=== PATIENT | male | born 1985 | race African-American/Black ===

== ENCOUNTER 2018-02-15 07:59 | Observation (INO) ==
[2018-02-15] MEDS ORDERED: Aspirin 81 MG TAB.CHEW PO ONE (08:04)
[2018-02-15] MEDS ORDERED: Nitroglycerin 0.4 MG TAB.SUBL SL PRN ×2 (08:11→14:54)
[2018-02-15 08:36] LABS: Basophils % 0.4 %; Eosinophils # 0.1 K/mcL (0.0-0.6); Eosinophils % 1.2 %; Hematocrit 42.6 % (37.5-50.1); Hemoglobin 14.3 g/dL (12.9-16.9); Immature Granulocytes % 0.6 % (0-4); Lymphocytes # 1.4 K/mcL (0.6-4.6); Lymphocytes % 17.4 %; Mean Corpuscular HGB Conc 33.6 g/dL (31.6-35.5); Mean Corpuscular Hemoglobin 29.8 pg (28.0-33.3); Mean Corpuscular Volume 88.8 fL (83.0-100.0); Mean Platelet Volume 11.8 fL (9.4-12.4); Monocytes # 0.8 K/mcL (0.0-1.3); Monocytes % 9.2 %; Neutrophils # 5.8 K/mcL (1.6-8.9); Platelet Count 265 K/mcL (140-400); Red Cell Distribution Width 12.8 % (11.5-14.5); Segmented Neutrophils % 71.2 %
[2018-02-15 08:41] LABS: INR 1.2; Prothrombin Time 12.6 Seconds (9.4-12.1)
[2018-02-15 08:44] LABS: Activated Partial Thrombo Time 30.5 Seconds (26.0-36.0)
[2018-02-15 08:51] LABS: Troponin I < 0.03 ng/mL (< 0.04)
[2018-02-15 08:53] LABS: BUN/Creatinine Ratio 8 (6-26); Blood Urea Nitrogen 9 mg/dL (6-20); Calcium 9.3 mg/dL (8.6-10.3); Carbon Dioxide 26 mEq/L (23-29); Chloride 102 mEq/L (98-107); Glucose 110 mg/dL (70-105); Osmolality,Calculated 279 (280-300); Potassium 3.6 mEq/L (3.5-5.1); Sodium 135 mEq/L (136-145); eGFR For African Americans > 60 (> 60); eGFR For Non-African Americans > 60 (> 60)
--- NOTE | 2018-02-15 09:29 | Emergency Department Note ---
Disposition Clinical Impression: Atypical chest pain Chest pain Qualifiers: Chest pain type: unspecified Qualified Code(s): R07.9 - Chest pain, unspecified Disposition: Admitted As Inpatient Condition: Good Referrals: NONE,PCP [Primary Care Provider] - Time of Disposition: 09:48 Chest Pain HPI - General Chief Complaint: ED Chest Pain Stated Complaint: Chest Pain Time Seen by Provider: 02/15/18 08:03 Source: EMS Mode of arrival: EMS Limitations: no limitations Vital Signs Reviewed: Yes Nursing Notes Reviewed: Yes - History of Present Illness HPI Narrative: Patient presents to the emergency room for evaluation of chest pain. 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 He has had some left arm discomfort over the last several months but this was completely different. He attributed the previous pain to a shot Onset (ago): Just COTTON TIER Duration: intermittent, now resolved Onset: during rest Pain Location: substernal, left chest Severity: mild Severity scale (1-10): 2 Quality: tightness, heaviness Pain Radiation: LUE Improves with: nothing Worsens with: nothing Associated symptoms: Denies: nausea, vomiting, diaphoresis Treatments prior to arrival chest pain: aspirin All systems ED: reviewed and negative except as stated. Review of Systems: As Per HPI Constitutional: Denies: fever, chills Cardiovascular: Reports: chest pain. Denies: palpitations, dyspnea on exertion , orthopnea Respiratory: Denies: cough, dyspnea, wheezes Gastrointestinal: Denies: abdominal pain, nausea, vomiting, diarrhea, constipation Genitourinary: Denies: dysuria, frequency Musculoskeletal: Denies: back pain, neck pain Neurological: Denies: headache Endocrine: Denies: fatigue Chest Pain PMH - Past Medical History Medical history: Reports: GERD Psychiatric history: Reports: no psych history - Social History Smoking Status: Never smoker Alcohol use: Reports: none Drug use: Reports: none Physical Exam - General Limitations: no limitations General appearance: alert, in no apparent distress - Head Head exam: atraumatic, normocephalic, normal inspection - ENT ENT exam: normal exam, normal oropharynx, mucous membranes moist - Neck Neck exam: Present: normal inspection, full ROM, trachea midline. Absent: tenderness, meningismus, lymphadenopathy - Chest Chest inspection: Present: normal inspection, symmetric chest wall rise. Absent : tenderness - Respiratory Respiratory exam: Present: normal lung sounds bilaterally. Absent: respiratory distress, wheezes, accessory muscle use - Cardiovascular Cardiovascular exam: Present: regular rate, normal rhythm, normal heart sounds - Abdominal Exam Abdominal exam: Present: soft, Non-Tender. Absent: tenderness, distention, guarding, rebound, rigidity, Corea's sign, Rovsing's sign, tenderness at McBurney's Point - Extremities Exam Extremities exam: Present: normal inspection, full ROM, normal capillary refill. Absent: tenderness, pedal edema - Back Exam Back exam: Present: normal inspection, full ROM. Absent: tenderness - Neurological Exam Neurological exam: Present: alert, oriented X3, CN II-XII intact, normal gait - Skin Skin exam: Present: warm, dry, intact, normal color Course Course Narrative: Patient seen and examined the time of arrival. See history of present illness. 32-year-old male presents to the emergency room with complaint of chest pressure and pain that radiated down his left arm. Patient never had any like this before. Over the last several months he has had some pain in his left shoulder that he attributed to a intramuscular shot for the flu vaccination. He is describing the symptoms here today as different. Patient had the onset of the symptoms within the last several hours just prior to coming in. EMS transported and EKG to the emergency room that did not show any acute signs of ST segment elevation mother were T-wave inversions noted in lead 3 and aVF. Repeat EKG was collected immediately on presentation shows similar morphology. There is no visible signs of ST segment elevation or abnormality at this point. Patient is denying chest pain on arrival here in the care of the emergency medical providers. Currently, patient is denying chest pain shortness of breath headache vision changes nausea vomiting or diarrhea. His only medical issue is acid reflux. He denies any recent trauma injury or fevers. Patient has an over the road dump truck driver. Because of this presentation patient with chest x-ray EKG labs including CBC chemistry troponin and d-dimer. Patient otherwise denies any family history of early cardiac disease or myocardial infarction. Clinical suspicion is concerning for possible acute coronary syndrome based on the presentation symptoms and the pressure. Full workup will be completed and patient will most likely be admitted. Nitroglycerin child is ordered but only will be started at the patient has reemergence of the chest pressure and pain. Patient is otherwise clinically stable. Aspirin and started been given. Patient lungs are clear heart is regular abdomen is soft. Patient has no signs of pitting edema. Pulses are intact and symmetrical bilaterally. Patient is otherwise in no specific distress on arrival and her first initial evaluation. - Reevaluation(s) Reevaluation #1: Patient did disclose that he is currently being treated for bronchitis. His EKG does not show any acute signs of pericarditis or myocarditis. Troponin is negative. Patient is clinically stable. Discussed at length the concern secondary to the chest pressure and pain along with his lack of medical history. Patient understands this and appreciates our concern. EKG abnormality including the Q waves in the inverted T waves are also concerning for recent myocardial ischemia with no comparable EKG for our review. The repeat EKG approximately 30 minutes after the initial does not show any acute changes. Patient at this time will be admitted to the hospital for definitive management. No acute intervention or medical necessity has been needed here in the emergency room. Labs and imaging are unremarkable repeat EKGs are stable. D-dimer is normal at this time a low clinical suspicion for pulmonary emboli. The hospitalist Dr. Jorge and I reviewed the patient's presentation symptoms medical history medical intervention and he had no other recommendations at this time. Patient will be admitted for further evaluation and definitive management. Time: 09:44 Vital Signs Temperature 98.0 F 02/15/18 08:02 Pulse Rate 96 02/15/18 08:02 Respiratory Rate 20 02/15/18 08:02 Blood Pressure 150/112 02/15/18 08:02 O2 Sat by Pulse Oximetry 92 02/15/18 08:02 Temperature 98.0 F 02/15/18 08:02 Pulse Rate 96 02/15/18 08:02 Respiratory Rate 20 02/15/18 08:02 Blood Pressure 150/112 02/15/18 08:02 O2 Sat by Pulse Oximetry 92 02/15/18 08:02 Oxygen Delivery Oxygen Delivery Room Air Chest Pain - MDM Narrative Medical decision making narrative: Chest pain, ACS rule out - Medical Records Medical records reviewed: Yes I reviewed the patient's medical records. - Lab Data Lab results reviewed: Yes I reviewed the patient's lab results. Result diagrams: 02/15/18 08:16 02/15/18 08:16 Lab Results 02/15/18 02/15/18 02/15/18 Range/Units 08:16 08:16 08:16 WBC 8.1 (4.3-11.1) K/mcL RBC 4.80 (4.19-5.50) M/mcL Hgb 14.3 (12.9-16.9) g/dL Hct 42.6 (37.5-50.1) % MCV 88.8 (83.0-100.0) fL MCH 29.8 (28.0-33.3) pg MCHC 33.6 (31.6-35.5) g/dL RDW 12.8 (11.5-14.5) % Plt Count 265 (140-400) K/mcL MPV 11.8 (9.4-12.4) fL Immature Gran % 0.6 (0-4) % Seg Neutrophils % 71.2 % Lymphocytes % 17.4 % Monocytes % 9.2 % Eosinophils % 1.2 % Basophils % 0.4 % Neutrophils # 5.8 (1.6-8.9) K/mcL Lymphocytes # 1.4 (0.6-4.6) K/mcL Monocytes # 0.8 (0.0-1.3) K/mcL Eosinophils # 0.1 (0.0-0.6) K/mcL Basophils # 0.0 (0.0-0.2) K/mcL PT 12.6 H (9.4-12.1) Seconds INR 1.2 APTT 30.5 (26.0-36.0) Seconds D-Dimer (0-500) ng/mLFEU Sodium (136-145) mEq/L Potassium (3.5-5.1) mEq/L Chloride (98-107) mEq/L Carbon Dioxide (23-29) mEq/L BUN (6-20) mg/dL Creatinine (0.70-1.30) mg/dL Est GFR ( Amer) (> 60) Est GFR (Non-Af Amer) (> 60) BUN/Creatinine Ratio (6-26) Glucose (70-105) mg/dL Calculated Osmolality (280-300) Calcium (8.6-10.3) mg/dL Troponin I (< 0.04) ng/mL B-Natriuretic Peptide 13 (Less than 100) pg/mL 02/15/18 02/15/18 Range/Units 08:16 08:16 WBC (4.3-11.1) K/mcL RBC (4.19-5.50) M/mcL Hgb (12.9-16.9) g/dL Hct (37.5-50.1) % MCV (83.0-100.0) fL MCH (28.0-33.3) pg MCHC (31.6-35.5) g/dL RDW (11.5-14.5) % Plt Count (140-400) K/mcL MPV (9.4-12.4) fL Immature Gran % (0-4) % Seg Neutrophils % % Lymphocytes % % Monocytes % % Eosinophils % % Basophils % % Neutrophils # (1.6-8.9) K/mcL Lymphocytes # (0.6-4.6) K/mcL Monocytes # (0.0-1.3) K/mcL Eosinophils # (0.0-0.6) K/mcL Basophils # (0.0-0.2) K/mcL PT (9.4-12.1) Seconds INR APTT (26.0-36.0) Seconds D-Dimer 261 (0-500) ng/mLFEU Sodium 135 L (136-145) mEq/L Potassium 3.6 (3.5-5.1) mEq/L Chloride 102 (98-107) mEq/L Carbon Dioxide 26 (23-29) mEq/L BUN 9 (6-20) mg/dL Creatinine 1.07 (0.70-1.30) mg/dL Est GFR ( Amer) > 60 (> 60) Est GFR (Non-Af Amer) > 60 (> 60) BUN/Creatinine Ratio 8 (6-26) Glucose 110 H (70-105) mg/dL Calculated Osmolality 279 L (280-300) Calcium 9.3 (8.6-10.3) mg/dL Troponin I < 0.03 (< 0.04) ng/mL B-Natriuretic Peptide (Less than 100) pg/mL - Radiology Data Radiology results reviewed: Yes I reviewed the patient's radiology results. Chest x-ray is unremarkable for acute intrathoracic pathology at this time. - EKG Data EKG attestation: Yes I reviewed and interpreted this EKG. EKG results narrative: Initial EKG at 802 hours shows sinus rhythm with T-wave inversions in lead 3 and aVF. No acute reciprocal changes noted. Patient has sinus rhythm. Ventricular rate of 93. MN interval 176. QRS duration 112. QTC of 413. Patient does not have any other acute abnormalities noted this time. No acute signs of WPW or Brugada syndrome. No comparable EKG. Repeat EKG at 0832 hours. Identical morphology with no acute changes. Intervals appear to be symmetrical periventricular 100. No axis deviation. No acute signs of ST segment elevation or abnormality. Heart Score - Score History: Moderately Suspicious EKG: Non Specific repolarisation Disturbance Age: Less than 45 Risk Factors: No risk factors known Troponin: Less than normal limit HEART Score Total: 2
--- NOTE | 2018-02-15 10:12 | Internal Med History&Physical ---
Date of Encounter: 02/15/18 Time of Encounter: 09:50 Internal Medicine - H&P: HPI Admitted From: Emergency Dept Plans for Post Hospital Care: Home History of present illness: Mr. Leung is a 32 year old man who presneted in the ER c/o left-sided chest pain with radiation to his right shoulder and proximal right arm. There are no associated symptoms including sob, diaphoresis, dizziness, etc. These symptoms have been occurring for several days and he thinks they may have begun with a pulled muscle in his left chest wall possibly associated with a chronic cough he 's had for several months. The symptoms are somewhat reproducible with palpation of his anterior chest wall but not entirely the same. The symptoms are worse this morning prompting him to come to the ER. He has no personal history of CAD, but his father at age 74 from a first AL. His ECG showed TWI in II and aVF and his initioal troponin was <0.03. His D-dimer is wnl at 261 and he has no other symptoms to be concerned for a PE. 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 He was hypertensive with a BP of 150/113 in the ER, but denies a history of HTN. He c/o several months of a non-productive cough but his CXR failed to show any significant acute pathology. He was given aspirin but did not require NG to cause improvement of his symptoms. He has never had a stress test but will undergo a nuclear stress test and have an Echo today. Past Med Surg Social Fam HX - Past Medical History Medical history: GERD, hypertension Psychiatric history: no psych history - Social History Smoking Status: Never smoker Smokeless Tobacco Status: No Alcohol use: none Drug use: none Internal Medicine - H&P: Meds Doxycycline Hyclate [Morgidox] 100 mg PO BID 02/15/18 [History] Omeprazole [PriLOSEC] 40 mg PO DAILY 02/15/18 [History] All Systems PM: A 10-system review of systems was performed and is negative for pertinent findings except as documented above in the HPI. - Constitutional Constitutional: no chills, no fever(s), no night sweats - EENT Eyes: no blurry vision, no change in vision, no discharge, no irritation, no pain, no photophobia Ears: no ear discharge, no ear pain, no tinnitus Nose, mouth and throat: no dry mouth, no dysphagia, no nasal discharge, no neck pain, no sinus pain, no sinus pressure, no sore throat - Cardiovascular Cardiovascular ROS IM: chest pain, no diaphoresis, no dyspnea, no irregular heart rhythm, no lightheadedness, no palpitations, no syncope - Respiratory Respiratory: cough, no dyspnea, no hemoptysis, no wheezing, no stridor, no excessive phlegm production - Gastrointestinal Gastrointestinal: no abdominal pain, no diarrhea, no hematemesis, no hematochezia, no melena, no nausea, no vomiting - Musculoskeletal Musculoskeletal ROS IM: no muscle weakness, no numbness, no tingling - Integumentary Integumentary IM: no rash, no unusual bruising - Neurological Neurological ROS: no confusion, no convulsions, no focal weakness, no numbness, no tingling, no tremor(s) - Hematologic/Lymphatic Hematologic/Lymphatic: no easy bruising - Constitutional Vitals: Temp Pulse Resp BP Pulse Ox 98.0 F 96 20 150/112 92 02/15/18 08:02 02/15/18 08:02 02/15/18 08:02 02/15/18 08:02 02/15/18 08:02 General appearance: Present: A&O X 3, pleasant, no acute distress, obese - Head Head exam: Present: atraumatic, normocephalic - Eye Eye exam: Present: EOMI, PERRL, conjuntiva pink, sclera anicteric. Absent: conjunctival injection Pupils: Present: PERRL - Neck Neck exam general surgery: Present: supple, trachea midline. Absent: lymphadenopathy - Respiratory Respiratory exam: Present: CTAB. Absent: accessory muscle use, rales, rhonchi, wheezes - Cardiovascular Cardiovascular exam: Present: RRR, +S1, +S2. Absent: diastolic murmur, gallop, rubs, systolic murmur - GI/Abdominal GI/Abdominal exam: Present: normal bowel sounds, soft, no peritoneal signs. Absent: distended, tenderness - Extremities Exam Extremities exam: Present: full ROM, warm. Absent: calf tenderness, cyanotic, pedal edema - Neurological Exam Neurological exam: Present: CN II-XII intact, oriented X3, no focal deficits. Absent: pronater drift, facial droop, speech deficit - Skin Skin exam: Present: dry, intact, normal color. Absent: diaphoretic, rash Internal Med - H&P Results - Labs CBC & Chem 7: 02/15/18 08:16 02/15/18 08:16 Labs: Short CBC 02/15/18 Range/Units 08:16 WBC 8.1 (4.3-11.1) K/mcL Hgb 14.3 (12.9-16.9) g/dL Hct 42.6 (37.5-50.1) % Plt Count 265 (140-400) K/mcL Neutrophils # 5.8 (1.6-8.9) K/mcL BMP 02/15/18 08:16 Sodium 135 L Potassium 3.6 Chloride 102 Carbon Dioxide 26 BUN 9 Creatinine 1.07 Glucose 110 H Calcium 9.3 Cardiac Enzymes 02/15/18 Range/Units 08:16 Troponin I < 0.03 (< 0.04) ng/mL - Impressions ITS Impressions Chest X-Ray 02/15/18 08:04 IMPRESSION: No acute process. D/ / Emilie Encinas MD / Emilie Encinsa MD Interpreting Provider: Emilie Encinas MD - Assessment and plan (1) Chest pain Current Visit: Yes Status: Acute Assessment and plan: Adm for obs. Trend troponins (initial <0.03) ECG showed TWI in ing leads No personal history, but family history of CAD and risk factors (HTN, obesity) Exercise nuclear stress test ordered CXR neg Telemetry Lipid panel and A1c ordered Aspirin given Qualifiers: Chest pain type: precordial pain Qualified Code(s): R07.2 - Precordial pain (2) Hypertensive urgency Current Visit: Yes Status: Acute Assessment and plan: Start lisinopril and add PRN Hydralazine (3) Obesity Current Visit: Yes Status: Acute Assessment and plan: Risk reduction strategy explained to pt including weight loss Qualifiers: Obesity type: due to excess calories Body mass index: BMI 40.0-44.9 Qualified Code(s): E66.01 - Morbid (severe) obesity due to excess calories; Z68.41 - Body mass index (BMI) 40.0-44.9, adult; Z68.41 - Body mass index (BMI) 40.0-44.9, adult; Z68.41 - Body mass index (BMI) 40.0-44.9, adult; Z68.41 - Body mass index (BMI) 40.0-44.9, adult (4) Cough Current Visit: No Status: Chronic Assessment and plan: Chronic cough No fever with normal WBC Denies tob use Not currently coughing - Time Spent With Patient Total time spent is greater than 50% in coordination of care (as documented) at patient's floor/unit and/or counseling patient: 25 - 35 minutes
[2018-02-15 10:21] LABS: Chol/HDL Ratio 4.1 (0-4.9); Cholesterol 171 mg/dL (< 200); HDL Cholesterol 42 mg/dL (40-59); LDL Cholesterol,Calculated 110 mg/dL (0-99); Triglycerides 95 mg/dL (< 150)
[2018-02-15 10:30] LABS: Estimated Average Glucose 117 mg/dl; Hemoglobin A1C 5.7 %
[2018-02-15] MEDS ORDERED: Benzonatate 100 MG CAPSULE PO PRN (10:56)
[2018-02-15] MEDS: *HR* HYDROcodone/Acet 5/325 mg TABLET PO PRN (17:30)
[2018-02-15] MEDS: Doxycycline 100 MG CAPSULE PO SCH (22:45)
[2018-02-16 04:52] LABS: Basophils % 0.1 %; Eosinophils # 0.2 K/mcL (0.0-0.6); Eosinophils % 2.4 %; Hematocrit 42.8 % (37.5-50.1); Hemoglobin 14.1 g/dL (12.9-16.9); Immature Granulocytes % 0.5 % (0-4); Lymphocytes # 1.9 K/mcL (0.6-4.6); Lymphocytes % 24.9 %; Mean Corpuscular HGB Conc 32.9 g/dL (31.6-35.5); Mean Corpuscular Hemoglobin 29.4 pg (28.0-33.3); Mean Corpuscular Volume 89.4 fL (83.0-100.0); Mean Platelet Volume 11.5 fL (9.4-12.4); Monocytes # 0.9 K/mcL (0.0-1.3); Monocytes % 11.4 %; Neutrophils # 4.5 K/mcL (1.6-8.9); Platelet Count 246 K/mcL (140-400); Red Blood Count 4.79 M/mcL (4.19-5.50); Segmented Neutrophils % 60.7 %
[2018-02-16 04:57] LABS: INR 1.1; Prothrombin Time 12.3 Seconds (9.4-12.1)
[2018-02-16 05:19] LABS: Alanine Aminotransferase 15 Units/L (7-52); Albumin 3.7 g/dL (3.5-5.7); Albumin/Globulin Ratio 1.1 (1.1-2.2); Alkaline Phosphatase 50 Units/L (34-104); Aspartate Amino Transferase 16 Units/L (13-39); BUN/Creatinine Ratio 10 (6-26); Bilirubin,Total 0.4 mg/dL (0.3-1.0); Blood Urea Nitrogen 12 mg/dL (6-20); Calcium 9.4 mg/dL (8.6-10.3); Carbon Dioxide 28 mEq/L (23-29); Chloride 103 mEq/L (98-107); Globulin 3.4 g/dL (2.4-3.5); Glucose 93 mg/dL (70-105); Magnesium 2.4 mg/dL (1.6-2.6); Osmolality,Calculated 283 (280-300); Potassium 3.9 mEq/L (3.5-5.1); Sodium 137 mEq/L (136-145); Total Protein 7.1 g/dL (6.4-8.9); eGFR For African Americans > 60 (> 60); eGFR For Non-African Americans > 60 (> 60)
--- NOTE | 2018-02-16 05:55 | Electrocardiograph Report ---
[facility] Test Date: 2018-02-15 Pat Name: Malcom Leung Department: 103 Room: 3B65 Gender: M Rehabilitation Specialist: MSC : 1985 Requested By: Jose Rafael Garibay Order Number: [id number] Reading MD: Allen Nelson Measurements Intervals [place] Rate: 93 P: 23 AK: 176 QRS: 47 QRSD: 112 T: 2 QT: 362 QTc: 413 Interpretive Statements SINUS RHYTHM POSSIBLE LEFT ATRIAL ENLARGEMENT [-0.1mV P WAVE IN V1/V2] POSSIBLE INFERIOR MYOCARDIAL INFARCTION [30 ms Q WAVE IN II/aVF], PROBABLY OLD Electronically Signed On 02-16-2018 5:54:11 EDT by Allen Nelson
--- NOTE | 2018-02-16 05:55 | Electrocardiograph Report ---
[facility] Test Date: 2018-02-15 Pat Name: Malcom Leung Department: 103 Room: 3B65 Gender: M Patient Services Rep: MSC : 1985 Requested By: Jose Rafael Garibay Order Number: [id number] Reading MD: Allen Nelson Measurements Intervals [place] Rate: 100 P: 12 MS: 168 QRS: 56 QRSD: 106 T: -1 QT: 357 QTc: 414 Interpretive Statements SINUS TACHYCARDIA POSSIBLE LEFT ATRIAL ENLARGEMENT [-0.1mV P WAVE IN V1/V2] POSSIBLE INFERIOR MYOCARDIAL INFARCTION [30 ms Q WAVE IN II/aVF], PROBABLY OLD ABNORMAL RHYTHM ECG Electronically Signed On 02-16-2018 5:54:17 EDT by Allen Nelson
[2018-02-16] MEDS ORDERED: Aspirin 81 MG TAB.CHEW PO SCH (09:00)
[2018-02-16] MEDS: Doxycycline 100 MG CAPSULE PO SCH (09:57)
[2018-02-16 10:36] VITALS: BP 129/86
[2018-02-16] MEDS: *HR* HYDROcodone/Acet 5/325 mg TABLET PO PRN (10:50)
--- NOTE | 2018-02-16 11:48 | Discharge Summary ---
- NOTES TO OUTPATIENT PROVIDER Notes to Outpatient Provider: f/u PCP if musculoskeletal pain continues may take Motrin as needed. f/u with dentist for dental pain Date of Encounter: 02/16/18 Time of Encounter: 11:46 - Discharge Diagnosis (1) Chest pain Priority: Primary Status: Acute Qualifiers: Chest pain type: precordial pain Qualified Code(s): R07.2 - Precordial pain (2) Hypertensive urgency Priority: Primary Status: Chronic (3) Obesity Priority: Primary Status: Chronic Qualifiers: Obesity type: due to excess calories Body mass index: BMI 40.0-44.9 Qualified Code(s): E66.01 - Morbid (severe) obesity due to excess calories; Z68.41 - Body mass index (BMI) 40.0-44.9, adult; Z68.41 - Body mass index (BMI) 40.0-44.9, adult; Z68.41 - Body mass index (BMI) 40.0-44.9, adult; Z68.41 - Body mass index (BMI) 40.0-44.9, adult (4) Cough Priority: Primary Status: Chronic (5) Tooth pain Priority: Primary Status: Acute (6) Atypical chest pain Priority: Primary Status: Acute Hospital course: Mr. Leung is a 32 year old male who presented to the ER with left-sided chest pain that radiated to his left shoulder and proximal left arm. He thanked thinks it began with a pulled muscle in his chest. He also has a cough that he has had for several months. Cough did make the pain in his chest worse but it was not entirely the same. He came to the ED for evaluation. He has no history of CAD but his father from his first [place] at age 73. His EKG showed T-wave inversions in lead 2 and aVF. Initial troponin was 0.03 and serial troponins were the same. D-dimer was normal at 261. He was found to be a little hypertensive at 150/113 but denied any history of high blood pressure. Stress test was reviewed with the findings of stress ECG negative for ischemia, exercise capacity was good, normal hemodynamic response to exercise, no arrhythmias noted with stress. Patient had no chest pain with stress. Discussed with the patient need to keep a blood pressure log and follow up with his primary care physician regarding any elevation in his blood pressure. He has made an appointment to follow-up with his dentist next week for the dental pain. Explained modalities for musculoskeletal pain including heating pad, Advil or ibuprofen and rest. He has no questions. Discharge discussed with: patient, nurse - Time Spent with Patient Total time spent providing and/or coordinating discharge services: Less than 30 minutes - Discharge Medications Home Medications: Doxycycline Hyclate [Morgidox] 100 mg PO BID 02/15/18 [History] Omeprazole [PriLOSEC] 40 mg PO DAILY 02/15/18 [History] Allergies/Adverse Reactions: 3 Allergy/AdvReac Type Severity Reaction Status Date / Time No Known Allergies Allergy Verified 02/15/18 10:48 Date of admission: 02/15/18 10:05 Primary care physician: PCP NONE Discharging clinician: Yesenia Cuevas Anticipated date of discharge: 02/16/18 - Constitutional Vitals: Temp Pulse Resp BP Pulse Ox 97.7 F 97 16 129/86 94 02/16/18 10:35 02/16/18 10:35 02/16/18 10:35 02/16/18 10:35 02/16/18 07:16 General appearance: Present: A&O X 3, pleasant, no acute distress, obese - Head Head exam: Present: atraumatic, normocephalic - Eye Eye exam: Present: PERRL, conjuntiva pink, sclera anicteric Pupils: Present: PERRL - Neck Neck exam general surgery: Present: supple, trachea midline. Absent: lymphadenopathy - Respiratory Respiratory exam: Present: chest wall tenderness, CTAB. Absent: accessory muscle use, rales, rhonchi, wheezes - Cardiovascular Cardiovascular exam: Present: RRR, +S1, +S2. Absent: diastolic murmur, gallop, rubs, systolic murmur - GI/Abdominal GI/Abdominal exam: Present: normal bowel sounds, soft, no peritoneal signs. Absent: distended, tenderness - Extremities Exam Extremities exam: Present: warm, radial pulses palpable and symmetrical. Absent : calf tenderness, cyanotic, pedal edema - Neurological Exam Neurological exam: Present: alert, CN II-XII intact, normal gait, oriented X3, no focal deficits. Absent: pronater drift, facial droop, speech deficit - Skin Skin exam: Present: dry, intact - Patient Status Disposition: Home, Self-Care Condition: Good Functional capacity at discharge: independent ambulation Overall status at discharge: patient is back to baseline - Discharge Instructions Instructions: Chest Pain (DC) Follow Up With: NONE,PCP [Primary Care Provider] - - Diet and Activity Activity: resume usual activities as tolerated Diet: low fat, low cholesterol
== END 2018-02-16 14:10 | disposition home or self-care (01) ==
LOC: EMEROO 07:59 → 3BNU 07:59
PROVIDERS: ADMIT Internal Medicine; ATTEND Registered Nurse